=== PATIENT | male | born 1975 | race Caucasian/White ===

== ENCOUNTER 2020-12-13 15:22 | Emergency (ER) | payer BC, OTHER ==
[~2020-12-13] VITALS: Ht 172 cm; Wt 108.0 kg
[2020-12-13] MEDS ORDERED: TADA5TAB13 (15:34)
[2020-12-13] MEDS ORDERED: SERT-413 (15:34)
[2020-12-13] MEDS ORDERED: PRAV20TA3 (15:34)
--- NOTE | 2020-12-13 15:58 | ED Upper Extremity ---
General Chief Complaint: Upper Extremity Stated Complaint: FALL THROUGH CEILING/L SHOULDER INJ Nursing Triage Note: PT PRESENTS TO ED VIA POV FROM HOME WITH COMPLAINTS OF L SHOULDER PAIN AFTER FALLING PARTIALLY THROUGH DRYWALL WHEN IN THE ATTIC APROX 30 MIN DIRECTOR OF PERSONNEL. Nursing Sepsis Screen: No Definite Risk Source: patient Exam Limitations: no limitations (ELIZABETH RIBERA MED STUDENT) History of Present Illness Date Seen by Provider: Dec 13, 2020 Time Seen by Provider: 16:00 Initial Comments Pt is a 45yo male with PMH of HLD and depression who presents to the ED following a fall. He states he was working in his attic when he slipped off a rafter and his foot went through the ceiling about 30 mins before arrival. He states he landed with his left elbow striking the beam. He reports pain in his anterior shoulder at rest and pain in the posterior shoulder with movement. Denies any pain in the elbow or forearm. Reports numbness in his hand just after the fall but it has subsided. Location Injury Occurred: L arm Onset: just prior to arrival Pain/Injury Location: left shoulder Method of Injury: fell Modifying Factors: Improves With Movement (ELIZABETH RIBERA MED STUDENT) Allergies and Home Medications Allergies Coded Allergies: No Known Drug Allergies (Unverified , 12/13/20) Home Medications Hydrocodone/Acetaminophen 1 Each Tablet, 1 TAB PO Q4H PRN for PAIN-MODERATE (5- 7) Prescribed by: CARA WARD on 12/13/20 [id number] Patient Home Medication List Home Medication List Reviewed: Yes (CARA WILSON MD) Review of Systems Constitutional: No chills, No fever EENTM: no symptoms reported Respiratory: No cough, No short of breath Cardiovascular: No chest pain, No edema Gastrointestinal: No abdominal pain, No nausea, No vomiting Genitourinary: no symptoms reported Musculoskeletal: joint pain (L shoulder) Skin: No lesions Psychiatric/Neurological: Denies Numbness, Denies Tingling (ELIZABETH RIBERA MED STUDENT) Past Txefkay-Ojjqhz-Rpvjbu Hx Patient Social History Alcohol Use: Rarely Uses Smoking Status: Former Smoker Former Smoker, Quit: Nov 14, 2013 Recent Infectious Disease Expo: No Recent Hopitalizations: No (ELIZABETH RIBERA MED STUDENT) Seasonal Allergies Seasonal Allergies: No (ELIZABETH RIBERA MED STUDENT) Past Medical History Surgeries: Yes Gallbladder, Orthopedic Respiratory: No Cardiac: Yes High Cholesterol Neurological: No Genitourinary: No Gastrointestinal: No Musculoskeletal: No Endocrine: No HEENT: No Cancer: No Psychosocial: Yes Depression Integumentary: No Blood Disorders: No Adverse Reaction/Blood Tranf: No (ELIZABETH RIBERA MED STUDENT) Physical Exam Vital Signs Vital Signs - First Documented 12/13/20 15:35 Temp 36.7 Pulse 90 Resp 18 B/P (MAP) 148/100 (116) Pulse Ox 96 (CARA WILSON MD) Vital Signs Capillary Refill : Less Than 3 Seconds (ELIZABETH RIBERA MED STUDENT) Height, Weight, BMI Height: '" Weight: lbs. oz. kg; 36.00 BMI Method: General Appearance: WD/WN, no apparent distress HEENT: PERRL/EOMI Neck: non-tender, full range of motion Cardiovascular: regular rate, rhythm, no edema, no murmur Respiratory: chest non-tender, lungs clear, no respiratory distress, no accessory muscle use Gastrointestinal: normal bowel sounds, non tender, soft Back: no vertebral tenderness Shoulder: bone tenderness (anterior shoulder with palpation); No deformity, No ecchymosis; limited ROM (due to pain), soft tissue tenderness Elbow/Forearm: normal inspection, non-tender, no evidence of injury, limited ROM (limited flexion and extension due to pain in the shoulder) Wrist: Yes normal inspection, Yes non-tender, Yes no evidence of injury, Yes normal ROM Hand: normal inspection, non-tender, no evidence of injury, normal ROM Neurologic/Psychiatric: alert, normal mood/affect, oriented x 3 Skin: normal color, warm/dry (ELIZABETH RIBERA,MED STUDENT) Progress/Results/Core Measures Results/Orders My Orders Orders - CARA WILSON MD Shoulder, Left, 3 Views (12/13/20 16:30) (CARA WILSON MD) Vital Signs/I&O 12/13/20 12/13/20 15:35 18:11 Temp 36.7 36.7 Pulse 90 85 Resp 18 18 B/P (MAP) 148/100 (116) 142/92 (116) Pulse Ox 96 99 (CARA WILSON MD) Blood Pressure Mean: 116 Progress Progress Note : Progress Note Avulsion fracture of the greater tuberosity of the humeral head was noted on x- ray. Patient was placed in a shoulder immobilizer and instructed to follow-up with an orthopedic provider. See discharge instructions. (CARA WILSON MD) Diagnostic Imaging Diagonstic Imaging: Xray Plain Films/CT/US/NM/MRI: other (Left shoulder) Comments Initial reading of the left shoulder x-ray was negative. However, after further discussion with the radiologist, it was determined that there is likely a nondisplaced avulsion fracture of the greater tuberosity on the lateral aspect of the humeral head. (CARA WILSON MD) Departure Impression Primary Impression: Humerus head fracture Qualified Codes: S42.292A - Other displaced fracture of upper end of left humerus, initial encounter for closed fracture Disposition: HOME, SELF-CARE Condition: Improved Departure-Patient Inst. Decision time for Depature: 18:03 (CARA WILSON MD) Referrals: ANOOP TEJADA MD (PCP/Family) Primary Care Physician Patient Instructions: Shoulder Fracture Add. Discharge Instructions: You have a suspected avulsion fracture of the greater tuberosity of your left shoulder. Keep your shoulder in an immobilizer or a sling as much as possible until you follow-up with an orthopedic surgeon. You may use Tylenol (acetaminophen) for minor pain. Use the hydrocodone for more severe pain. Icing in 20-minute intervals may also be helpful. Follow-up with an orthopedic surgeon of your choice as soon as possible. Please call tomorrow to arrange a follow-up time. Call with questions or concerns. Return to the ER if you have worsening symptoms. All discharge instructions reviewed with patient and/or family. Voiced understanding. Scripts Hydrocodone/Acetaminophen (Hydrocodone-Acetamin 5-325 mg) 1 Each Tablet 1 TAB PO Q4H PRN for PAIN-MODERATE (5-7), #20 TAB Prov: CARA WILSON MD 12/13/20 Medical Student Attestation and Attending Note: I have personally interviewed and examined this patient along with Elizabeth Ribera, MS 4. I have reviewed student documentation including history, physical, and assessments. I agree with the documentation except where otherwise noted. Exam: General: Alert, oriented, no acute distress, well developed HEENT: Normocephalic and atraumatic Heart: Regular rate and rhythm without murmur Lungs: Clear to auscultation bilaterally with normal effort Extremities: Left upper extremity normal to inspection. Radial pulse normal. [employer] Courtesy Clerk strength normal. Sensation normal. No tenderness or pain in the elbow. Tenderness to the anterior portion of the shoulder on palpation. Clavicle non tender. Decreased active range of motion. Passive range of motion elicits minor pain. Neuropsych: Alert, oriented, no focal deficits Skin: Warm and dry without rashes (CARA WILSON MD) Copy Copies To 1: ANOOP TEJADA MD, HEATHER,MED STUDENT Dec 13, 2020 15:58 CARA WILSON MD Dec 13, 2020 18:07
--- NOTE | 2020-12-13 16:52 | Diagnostic Imaging Report ---
INDICATION: Left shoulder injury, fell through roof. Three views of the left shoulder show no fracture, dislocation or other acute abnormalities. IMPRESSION: Negative left shoulder. Dictated by: Dictated on workstation # [id number]
[2020-12-13] MEDS ORDERED: ACHD5005 PO (18:06)
[2020-12-13 18:11] VITALS: BP 142/92
== END 2020-12-13 18:11 | disposition home or self-care (01) ==
LOC: ER 15:25
DX: S42.392A Other fracture of shaft of left humerus, initial encounter for closed fracture (principal); I10 Essential (primary) hypertension; Z87.891 Personal history of nicotine dependence; W01.0XXA Fall on same level from slipping, tripping and stumbling without subsequent striking against object, initial encounter
CPT/HCPCS: 73030; 99283; L3650

== ENCOUNTER 2021-04-11 05:37 | Outpatient (CLI) | payer BC ==
[~2021-04-11] VITALS: Ht 175.3 cm; Wt 111.4 kg
[~2021-04-11 05:37] MED LIST: ACHD5005 PO; PRAV20TA3 PO; SERT-413 PO; TADA5TAB13 PO
[2021-04-11] MEDS ORDERED: CLOM25CA2 PO (16:08)
== END 2021-04-11 17:19 | disposition home or self-care (01) ==
LOC: PREOP 05:37
PROVIDERS: ATTEND Surgery
DX: Z01.818 Encounter for other preprocedural examination (principal)

== ENCOUNTER 2021-04-18 08:55 | Day surgery (SDC) | payer BC ==
[2021-04-18] VITALS (10 sets, daily range): BP systolic 121–152; BP diastolic 84–95
[~2021-04-18] VITALS: Ht 175 cm; Wt 111.4 kg
[~2021-04-18 08:55] MED LIST changes: +CLOM25CA2 PO
[2021-04-18] MEDS ORDERED: ceFAZolin 2 GM IV Premixed 50 ML IV ONE (09:00)
--- OUTSIDE RECORDS SUMMARY | 2021-04-18 09:22 | XMS REPORT | Clinical Summary ---
Author Author Organization Address Unknown Phone Unavailable Care Team Providers Care Administrative Services Officer Name Role Phone Alisia Ahumada MD PCP Allergies No Known Active Allergies Medications End Date Status Medication Sig Dispensed Refills Start Date Active pravastatin (PRAVACHOL) Take 20 mg by 0 20 MG tablet mouth daily. 0 Active sertraline (ZOLOFT) 50 mg Take 50 mg by 0 01/30 tablet mouth daily. 0 Active tadalafiL (CIALIS) 5 MG 1 tab daily 30 tablet 11 tabletIndications: 1 Hypogonadism male Active clomiPHENE (CLOMID) 50 mg 1/2 TAB DAILY 45 tablet 3 tabletIndications: 1 Hypogonadism male Active Problems Problem Noted Date Class 2 obesity due to excess calories in adult 08/31 Hypogonadism male 03/28/2020 Encounters Care Team Description Date Type Specialty Charisma Grayson MD Hypogonadism male (Primary Dx); Class 2 obesity due to excess calories without serious comorbidity with body mass index (BMI) of 36.0 to 36.9 in adult 03/07/2021 Office Visit Endocrinology from Last 3 Months Family History Medical History Relation Name Comments No Known Problems Father No Known Problems Mother Relation Name Status Comments Father Alive Mother Alive Social History Date Tobacco Use Types Packs/Day Years Used Never Smoker Smokeless Tobacco: Never Used Comments Alcohol Use Standard Drinks/Week Never 0 (1 standard drink = 0.6 o z pure alcohol) Alcohol Habits Answer Date Recorded How often do you have a drink containing alcohol? Never 03/29/2020 How many drinks containing alcohol do you have on No t asked a typical day when you are drinking? How often do you have six or more drinks on one Not asked occasion? Sex Assigned at Date Recorded Not on file Last Filed Vital Signs Reading Time Taken Comments Vital Sign 133/81 03/07/2021 1:18 PM CDT Blood Pressure 90 03/07/2021 1:18 PM CDT Pulse 36.2 C (97.2 F) 03/07/2021 1:18 PM CDT Temperature 18 03/07/2021 1:18 PM CDT Respiratory Rate 95% 03/07/2021 1:18 PM CDT Oxygen Saturation - - Inhaled Oxygen Concentration 109.6 kg (241 lb 9.6 oz) 03/07/2021 1:18 PM CDT Weight 175.3 cm (5' 9") 03/07/2021 1:18 PM CDT Height 35.68 03/07/2021 1:18 PM CDT Body Mass Index Plan of Treatment Care Team Description Date Type Specialty Charisma Grayson MD [address] [address] [phone] 09/12/2021 Video Visit Endocrinology Health Maintenance Due Date Last Done Comments Td/Tdap# 1975 Influenza Vaccine (#1) 2021 06/22/2019 COVID-19 Vaccine Completed 12/21/2020, 11/22/2020 Pneumococcal Vaccine: Aged Out No longer eligib le based on patient's age to Pediatrics (0 to 5 Years) complete this topic and At-Risk Patients (6 to 64 Years) Procedures Comments Procedure Name Priority Date/Time Associated Diag nosis HEMOGLOBIN A1C Routine 03/07/2021 Class 2 obesity due to 1:54 PM CDT excess calories without serious comorbidity with body mass index (BMI) of 36.0 to 36.9 in adult TESTOSTERONE Routine 03/07/2021 Hypogonadism ma le 1:54 PM CDT from Last 3 Months Results * Testosterone (03/07/2021 1:54 PM CDT) Testosterone 542 240 - 813 ng/dL [facility] Lab Specimen Blood Performing Organization Address City/State/ZIP Code P julia Number [address] [address] LABORATORIES [facility] [address] [place] [address] * Hemoglobin A1C (03/07/2021 1:54 PM CDT) Hemoglobin A1C 5.8 (H) 4.0 - 5.6 % [facility] Comment: Hospital Lab Non-diabetic 4.0 - 5.6 % Prediabetes 5.7 - 6.4 % Diabetes >= 6.5 % Specimen Blood Performing Organization Address City/State/ZIP Code P julia Number [place] [address] [place] [address] [address] Lab from Last 3 Months Insurance Type Payer Benefit Subscriber ID Effective Phone Address Plan / Dates Group [facility] [id number] EXCHANGE resent HMO MAX MCGRAW Advance Directives For more information, please contact: [phone] Patient Engagement Quality Consultant Explanation Type Date Recorded Health Care Directive
--- OUTSIDE RECORDS SUMMARY | 2021-04-18 09:22 | XMS REPORT | Encounter Summary ---
Author Author [facility] Organization [facility] Address Unknown Phone Unavailable Care Team Providers Care Alligator Hunter Name Role Phone Alisia Ahumada MD PCP Reason for Visit * Reason Comments Hypogonadism Encounter Details Care Team Description Date Type Department Remberto Grayson MD [address] [place] [address] Hypogonadism male (Primary Dx); Class 2 obesity due to excess calories without serious comorbidity with body mass index (BMI) of 36.0 to 36.9 in adult 03/07/2021 Office Visit [facility] [address] [place] [address] Social History Date Tobacco Use Types Packs/Day [...] Assigned at Date Recorded Not on file documented as of this encounter Last Filed Vital Signs Reading Time Taken [...] 03/07/2021 1:18 PM CDT Body Mass Index documented in this encounter Progress Notes * Remberto Grayson MD - 03/07/2021 1:40 PM CDT ENDOCRINOLOGY FOLLOW/UP 03/07/2021 Patient: Everton Lei Age: 45 y.o. : 1975 REASON FOR FOLLOW/UP: Low testosterone PRIMARY CARE PROVIDER: Alisia Ahumada MD INTERVAL HISTORY : 45 y.o. male with hypogonadism . Patient takes clomiphene 50 mg, half a tablet 4 days a week. He has improved energy level, improved libido. He still has some erectile dysfu nction, uses tadalafil with good results on as-needed basis. No brain surgery, trauma, concussions. No testicular trauma, infections. He lee s history of vasectomy. He has 7 adopted children. Patient had vasectomy around 2012. He has depression, currently treated with Zoloft, under control. He has sleep apnea, has CPAP, but has not been able to use it yet, can cannot to lerate the mask. He just ordered a different mask. Patient lost 8 pounds since last visit in August 2020. He started exercising, but then fell and had shoulder fracture and ankle sprain. Just started exercisi ng again about a week ago. He tried phentermine 1 tablet daily but was not able to lose weight on it, so he discontinued. REVIEW OF SYSTEMS: Complete review of systems was done. Positives as per HPI. Patient denies heada vishal, chest pain, shortness of breath, nausea, vomiting, abdominal pain, dizzines s The remainder of review of systems negative. PHYSICAL EXAM: VITAL SIGNS: BP 133/81 | Pulse 90 | Temp 36.2 C (97.2 F) | Resp 18 | Ht 1.753 m (5' 9") | Wt 109.6 kg (241 lb 9.6 oz) | SpO2 95% | BMI 35.68 kg/m GENERAL APPEARANCE: 45 y.o. male in no acute distress. HEENT: Normocephalic, atraumatic. NECK: Thyroid gland normal size, non-tender, moves freely with swallowing. No p alpable nodules. No obvious cervical lymphadenopathy. CV: Regular rate and rhythm, no murmur. Pulses palpable. EXTREMITIES: No edema NEURO: No tremor. Gait and balance appear normal. Affect normal. SKIN: No rashes. LAB RESULTS: Component Value Date/Time HGBA1C 5.5 03/29/2020 1153 No results found for: CHOL, TRIG, HDL, LDLCHOL, CHOLHDL, NONHDL, MICABLRND, [facility] R, VITD25 Outside labs: Testosterone 140 Hemoglobin 15.2, hematocrit 44.3, platelets 229,, WBC 5.3 Sodium 141, potassium 3.7, calcium 9.4, creatinine 0.94 Liver function test normal MRI [facility] Mar 2020 Normal-appearing pituitary gland without concerning masses or abnormal enhanceme nt A few scattered white matter foci are seen in the deep cerebral white matter was marked in the left frontal lobe which are nonspecific. This could represent some subtle white matter ischemic change versus nonspecific demyelination. There is mild to moderate maxillary and ethmoid sinus disease without air-fluid level seen. ASSESSMENT AND PLAN: 1. Hypogonadism The patient has symptoms consistent with hypogonadism. Possible contributing factors: obesity, sleep apnea, chronic depression. Imp rovements in these conditions, as much as possible, can go a long way toward imp roving hypogonadism. W/up for secondary/reversible causes of low testosterone in February 2020: Ferrit in 108, iron saturation 32, no evidence of iron overload. Prolactin 15, normal. IGF-I 128, normal. MRI pituitary normal in March 2020. Continue clomiphene 50 mg, half a tablet 4 days a week Most recent testosterone 652 in August 2020. Check today At some point, when patient loses weight, is able to control sleep apnea with CPAP, plan to give patient trial off of clomiphene. Follow-up in 6 months 2. Erectile dysfunction Tadalafil 5 mg, 2 tablets as needed. 3. Obesity (BMI Body mass index is 35.68 kg/m.) Continue lifestyle modifications to promote weight loss: Low fat diet, decrea sing portion size, regular aerobic exercise. Hemoglobin A1c 5.5 in February 2020. No prediabetes or diabetes. Check today. Addendum 03/08/21 Testosterone 542, normal. Continue clomiphene 50 mg, half a tablet 4 days a week. Follow-up in 6 months as planned Hemoglobin A1c 5.8, increased, it is in the prediabetes range. Continue lifestyle modifications to decrease the risk of progression to diabetes : Limited carbohydrate diet, regular exercise, weight control. Remberto Grayson MD PATIENT'S HISTORY TAKEN INTO CONSIDERATION IN DECISION MAKING MEDICAL HISTORY: Active Ambulatory Problems Diagnosis Date Noted Hypogonadism male 03/28/2020 Class 2 obesity due to excess calories in adult 09/12/2020 Resolved Ambulatory Problems Diagnosis Date Noted No Resolved Ambulatory Problems Past Medical History: Diagnosis Date Hyperlipidemia Testosterone deficiency SURGICAL HISTORY: Past Surgical History: Procedure Laterality Date GALLBLADDER SURGERY TOE AMPUTATION ALLERGIES: No Known Allergies MED LIST: Current Outpatient Medications Medication Sig Dispense Refill clomiPHENE (CLOMID) 50 mg tablet 1/2 TAB DAILY 45 tablet 3 pravastatin (PRAVACHOL) 20 MG tablet Take 20 mg by mouth daily. sertraline (ZOLOFT) 50 mg tablet Take 50 mg by mouth daily. tadalafiL (CIALIS) 5 MG tablet 1 tab daily 30 tablet 11 No current facility-administered medications for this visit. FAMILY HISTORY: Family History Problem Relation Age of Onset No Known Problems Mother No Known Problems Father SOCIAL HISTORY: Social History Socioeconomic History Marital status: Spouse name: Not on file Number of children: Not on file Years of education: Not on file Highest education level: Not on file Occupational History Not on file Tobacco Use Smoking status: Never Smoker Smokeless tobacco: Never Used Substance and Sexual Activity Alcohol use: Never Drug use: Not on file Sexual activity: Not on file Other Topics Concern Not on file Social History Narrative Not on file Social Determinants of Health Financial Resource Strain: Difficulty of Paying Living Expenses: Food Insecurity: Worried About Running Out of Food in the Last Year: Ran Out of Food in the Last Year: Transportation Needs: Lack of Transportation (Medical): Lack of Transportation (Non-Medical): Physical Activity: Days of Exercise per Week: Minutes of Exercise per Session: Stress: Feeling of Stress : Social Connections: Frequency of Communication with Friends and Family: Frequency of Social Gatherings with Friends and Family: Attends Restoration Services: Active Member of Clubs or Organizations: Attends Club or Organization Meetings: Marital Status: Intimate Partner Violence: Fear of Current or Ex-Partner: Emotionally Abused: Physically Abused: Sexually Abused: Remberto Grayson MD 03/07/2021 1:40 PM documented in this encounter Miscellaneous Notes * Addendum Note - Remberto Grayson MD - 03/07/2021 1:40 PM CDT Addended by: REMBERTO GRAYSON on: 03/07/2021 02:20 PM Modules accepted: Orders documented in this encounter Plan of Treatment Care Team Description Date Type Specialty Remberto Grayson MD [address] [place] [address] [phone] 09/12/2021 Video Visit Endocrinology documented as of this encounter Procedures Comments Procedure Name Priority Date/Time Associated Diag nosis TESTOSTERONE Routine 03/07/2021 Hypogonadism ma le 1:54 PM CDT HEMOGLOBIN A1C Routine 03/07/2021 Class 2 obesity due to 1:54 PM CDT excess calories without serious comorbidity with body mass index (BMI) of 36.0 to 36.9 in adult documented in this encounter Results * Hemoglobin A1C (03/07/2021 1:54 PM CDT) Hemoglobin A1C 5.8 (H) 4.0 - 5.6 % [facility] Comment: Hospital Lab Non-diabetic 4.0 - 5.6 % Prediabetes 5.7 - 6.4 % Diabetes >= 6.5 % Specimen Blood Performing Organization Address City/State/ZIP Code P julia Number [address] [address] Lab * Testosterone (03/07/2021 1:54 PM CDT) Testosterone 542 240 - 813 ng/dL [facility] Lab Specimen Blood Performing Organization Address City/[facility] Code P julia Number [facility] [address] [place] [address] LABORATORIES [facility] [address] [place] [id number] documented in this encounter Visit Diagnoses Diagnosis Hypogonadism male - Primary Other testicular hypofunction Class 2 obesity due to excess calories without serious comorbidity with body mass index (BMI) of 36.0 to 36.9 in adult documented in this encounter
[2021-04-18 09:30] LABS: BASOPHILS # (AUTO) 0.1 10^3/uL (0.0-0.1); BASOPHILS % (AUTO) 1 % (0-10); EOSINOPHILS # (AUTO) 0.2 10^3/uL (0.0-0.3); EOSINOPHILS % (AUTO) 2 % (0-10); HEMATOCRIT 49 % (40-54); HEMOGLOBIN 16.2 g/dL (13.3-17.7); LYMPHOCYTES # (AUTO) 2.2 10^3/uL (1.0-4.0); LYMPHOCYTES % (AUTO) 35 % (12-44); MEAN CORPUSCULAR HEMOGLOBIN 30 pg (25-34); MEAN CORPUSCULAR HGB CONC 33 g/dL (32-36); MEAN CORPUSCULAR VOLUME 91 fL (80-99); MEAN PLATELET VOLUME 9.5 fL (9.0-12.2); MONOCYTES # (AUTO) 0.6 10^3/uL (0.0-1.0); MONOCYTES % (AUTO) 9 % (0-12); NEUTROPHILS # (AUTO) 3.4 10^3/uL (1.8-7.8); NEUTROPHILS % (AUTO) 53 % (42-75); PLATELET COUNT 225 10^3/uL (130-400); WHITE BLOOD COUNT 6.3 10^3/uL (4.3-11.0)
--- NOTE | 2021-04-18 09:55 | Progress Note-Pre Operative ---
Pre-Operative Progress Note H&P Reviewed The H&P was reviewed, patient examined and no changes noted. Date Seen by Provider: Apr 18, 2021 Time Seen by Provider: 09:50 Date H&P Reviewed: Apr 18, 2021 Time H&P Reviewed: 09:45 Pre-Operative Diagnosis: Bilateral inguinal hernias and umbilical hernia LISA CABRERA APRN Apr 18, 2021 09:55
[2021-04-18] MEDS: LACTATED RINGERS 1,000 ML IV PRN ×2 (09:56→11:30)
[2021-04-18] MEDS ORDERED: HYDR-3817 PO (09:57)
--- NOTE | 2021-04-18 09:58 | Discharge Inst-Surgical ---
D/C Lap Instructions-KIDO Reconcile Patient Problems Problems Reviewed?: Yes New, Converted, or Re-Newed RX: RX on Chart Follow Up Appt in 2 weeks Activity as tolerated No driving for 24 hours No driving while on pain medications Incentive Spirometry use every 2 hours while awake Regular Diet Symptoms to Report: Fever over 101 degree F, Nausea/Vomiting Infection Signs and Symptoms to report: Increased redness, Foul odor of wound, Increased drainage Bathing instructions: May shower Operative Area Clean/Dry; Keep incision clean/dry If any problems/questions: Contact your physician or go to Emergency Room LISA CABRERA APRN Apr 18, 2021 09:57
[2021-04-18] MEDS ORDERED: morphine INJ 10 MG/ML 1ML (SYR OR VIAL) IVP PRN (10:00)
[2021-04-18] MEDS ORDERED: HYDROcodone/APAP 5 MG/325 MG (LORTAB) TAB PO ONE (10:00)
[2021-04-18] MEDS ORDERED: ONDANSETRON 4 MG/2 ML (SDV) Z0FRAN IVP PRN ×2 (10:00→13:00)
[2021-04-18] MEDS ORDERED: ACETAMINOPHEN 325 MG TABLET PO PRN (10:00)
[2021-04-18] MEDS ORDERED: GLYCOPYRROLATE 0.2 MG/ML (ROBINUL) 2 ML VIAL ONE (10:52)
[2021-04-18] MEDS ORDERED: LIDOCAINE PF 2% 5 ML (XYLOCAINE) VIAL ONE (10:52)
[2021-04-18] MEDS ORDERED: fentaNYL INJ 100 MCG/2 ML AMP ONE (10:52)
[2021-04-18] MEDS ORDERED: proPOfol 200 MG/20 ML (DIPRIVAN) VIAL IV ONE (10:52)
[2021-04-18] MEDS ORDERED: NEOSTIGMINE 3 MG/3 ML VIAL ONE (10:52)
[2021-04-18] MEDS ORDERED: ROCURONIUM 10 MG/ML 5 ML SYRINGE IV ONE (10:52)
[2021-04-18] MEDS ORDERED: ONDANSETRON 4 MG/2 ML (SDV) Z0FRAN ONE (10:52)
[2021-04-18] MEDS ORDERED: MIDAZOLAM 2 MG/2 ML (VERSED) VIAL ONE (10:53)
[2021-04-18] MEDS ORDERED: LIDOCAINE/EPI 1%-1:200,000 (XYLOCAINE) 30 ML VIAL ONE (10:59)
--- NOTE | 2021-04-18 12:28 | Progress Note-Post Operative ---
Post-Operative Progess Note Surgeon (s)/Accounts Specialist (s) Surgeon CLAUDE SKAGGS MD Accounts Specialist: david godoy HEMOTHERAPIST Pre-Operative Diagnosis Bilateral inguinal hernias and umbilical hernia Post-Operative Diagnosis bilateral direct ing hernia, umbilical hernia Procedure & Operative Findings Date of Procedure 04/18/21 Procedure Performed/Findings laparoscopic bilateral inguinal hernia repair with mesh. open umbilical hernia repair with mesh. Anesthesia Type get Estimated Blood Loss Estimated blood loss (mL): minimal Specimens/Packing Specimens Removed hernia sac CLAUDE SKAGGS MD Apr 18, 2021 12:28
[2021-04-18] MEDS ORDERED: SEVOFLURANE (ULTANE) 15 ML INHAL SOLN ONE ×2 (12:51→12:52)
[2021-04-18] MEDS ORDERED: HYDROmorphone 2 MG/ML VIAL (DILAUDID) IV ONE (13:00)
[2021-04-18] MEDS ORDERED: morphine INJ 10 MG/ML 1ML (SYR OR VIAL) IVP ONE (13:00)
--- NOTE | 2021-04-18 15:13 | Anesthesia-General Post-Op ---
General Patient Condition Mental Status/LOC: Same as Preop Cardiovascular: Satisfactory Nausea/Vomiting: Absent Respiratory: Satisfactory Pain: Controlled Complications: Absent Post Op Complications Complications None Follow Up Care/Instructions Patient Instructions None needed. Anesthesia/Patient Condition Patient Condition Patient was seen on his way from PACU to SDC and he was doing well, no complaints, stable vital signs, no apparent adverse anesthesia problems. SHAHANA TOURE DO Apr 18, 2021 15:13
--- NOTE | 2021-04-18 18:05 | OPERATIVE REPORT ---
DATE OF SERVICE: 04/18/2021 ATTENDING PRIMARY CARE PHYSICIAN: Dr. Alisia Ahumada. PREOPERATIVE DIAGNOSES: Symptomatic reducible bilateral inguinal and symptomatic reducible umbilical hernia. POSTOPERATIVE DIAGNOSIS: Symptomatic reducible bilateral inguinal and symptomatic reducible umbilical hernia. PROCEDURE: Laparoscopic bilateral inguinal hernia repair with mesh, open umbilical hernia repair with mesh. SURGEON: Claude Skaggs MD. REVENUE CYCLE CONSULTANT: Kirby Diaz APRN. ANESTHESIA: General endotracheal. ESTIMATED BLOOD LOSS: Minimal. FINDINGS: Bilateral direct inguinal hernia. DISPOSITION: The patient tolerated the procedure well. INDICATIONS: The patient is a 45-year-old male who was referred over to us for pain involving the umbilical region. He states that he has had this for years; however, this has become larger over time and become painful. He also reports that he was noted to have a right inguinal hernia; however, did not notice any bulge. He states that this was identified on a work-related physical. Upon examination, he was found to have bilateral inguinal hernias, which were reducible; however, slightly tender to palpation. DESCRIPTION OF PROCEDURE: The patient was brought to the operating room, laid supine on the table. After adequate IV pain and sedative medications and general endotracheal intubation, the abdomen was prepped and draped in standard surgical fashion. A 0.5% Marcaine with epinephrine was used to anesthetize the left lateral abdomen and skin incision was made using 15 blade. An 0 silk suture was applied to the medial aspect of the incision for retraction and a Veress needle inserted with a low opening pressure of 0 mmHg. The abdomen was then insufflated to 15 mmHg pressure. Veress needle removed and a 5 mm XL trocar placed followed by a 5 mm 45-degree angle laparoscope visualizing the peritoneal cavity. A 4-quadrant abdominal exploration was performed. There was bilateral direct inguinal hernias with nothing within the hernia sac. There was also an umbilical hernia with omentum within the hernia sac. Under direct visualization, we then proceed to place a 10 mm supraumbilical port through the hernia sac. Under direct visualization, after the skin and hernia sac were anesthetized using 0.5% Marcaine with epinephrine. In a similar manner, a right lateral 5 mm port was placed. The patient was then placed in a Trendelenburg position, we first proceeded with repair of the right inguinal hernia by opening the peritoneal lining laterally towards the conjoined tendon and inguinal ligament laterally and medially until we reached the Ti's ligament. We then proceeded with inferior dissection encompassing the hernia sac. The cord and its surrounding contents were identified and spared throughout the process. Good hemostasis was observed. A medium sized 3DMax polypropylene mesh was then placed through the 15 mm port site and tacked to Ti's ligament medially with an AbsorbaTack into an inguinal ligament laterally. Peritoneal lining was then placed over the mesh and a few tacks placed to keep this in place with visualization of good hemostasis. We then turned our attention to repair the left inguinal hernia in a similar manner. The peritoneal lining was opened with the Sonicision laterally towards the conjoined tendon and inguinal ligament and Ti's ligament medially. We then proceeded with inferior dissection encompassing the hernia sac. The cord and its surrounding contents identified and spared throughout the process. Good hemostasis was observed and the same mesh was then placed into the defect and tacked to Ti's ligament medially and to the inguinal ligament laterally. Peritoneal lining was then placed over the mesh and a few absorbable tacks placed to keep this in place. The abdomen was then desufflated. The umbilical hernia sac was then dissected out using electrocautery. A 6.4 coated polypropylene mesh was then placed into the hernia sac and then sutured transfascially in a concentric manner using 0 Prolene interrupted sutures. The remaining ports removed and all skin incisions were closed using 4-0 Monocryl running subcuticular sutures. Wounds were then cleaned and covered with Dermabond. The umbilicus was then filled with tonsil sponges followed by 4 x 4 gauze followed by a large Op-Site and an abdominal binder. The patient tolerated the procedure well. We will start IV normal pain medication as well as a clear liquid diet. Once he is tolerating clears as good pain control with oral pain medications, ambulating well, we will discharge him home. He will be instructed to do no heavy lifting or exertion for the next two weeks and to wear the abdominal binder and scrotal support for that timeframe as well. Job ID: [id number] DocumentID: [id number] Dictated Date: 04/18/2021 12:39:46 Cloth Hand Date: 04/18/2021 18:04:44 Dictated By: CLAUDE SKAGGS MD
== END 2021-04-18 14:40 | disposition home or self-care (01) ==
LOC: SDC 08:55
PROVIDERS: ATTEND Surgery
DX: K40.20 Bilateral inguinal hernia, without obstruction or gangrene, not specified as recurrent (principal); K42.9 Umbilical hernia without obstruction or gangrene; G47.33 Obstructive sleep apnea (adult) (pediatric); F32.9 Major depressive disorder, single episode, unspecified; E66.01 Morbid (severe) obesity due to excess calories; Z68.36 Body mass index [BMI] 36.0-36.9, adult; Z79.899 Other long term (current) drug therapy
CPT/HCPCS: 49585; 49650; 85025; 87081; C1781 ×3; 36415

== ENCOUNTER 2021-07-30 12:57 | Emergency (ER) | payer BC ==
[~2021-07-30] VITALS: Ht 175 cm; Wt 111.4 kg
[~2021-07-30 12:57] MED LIST changes: +HYDR-3817 PO
--- OUTSIDE RECORDS SUMMARY | 2021-07-30 13:03 | XMS REPORT | Clinical Summary ---
Author Author [facility] Organization [facility] Address Unknown Phone Unavailable Care Team Providers Care Closing Specialist Name Role Phone Alisia Ahumada MD PCP Allergies No known active allergies Medications End Date Status Medication Sig Dispensed [...] calories in adult 08/31 Hypogonadism male 03/28/2020 Family History Medical History Relation Name Comments [...] more drinks on one Not asked occasion? Comment: Not asked Sex Assigned at Date Recorded Not on [...] Type Specialty Charisma Grayson MD [address] [place] [address] 09/12/2021 Video Visit Endocrinology Health Maintenance Due Date Last Done Comments Td/Tdap# 1975 Influenza Vaccine (#1) 2021 06/22/2019 COVID-19 Vaccine Completed 12/21/2020, 11/22/2020 Pneumococcal Vaccine: Aged Out No longer eligib le based on patient's age to Pediatrics (0 to 5 Years) complete this topic and At-Risk Patients (6 to 64 Years) Results Not on filefrom Last 3 Months Insurance Type Payer Benefit Subscriber ID Effective Phone Address Plan / Dates Group [facility] [id number] 2019-P [id number] EXCHANGE [facility] [id number] Advance Directives For more information, please contact: [phone] 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
--- NOTE | 2021-07-30 13:33 | ED Lower Extremity ---
General Chief Complaint: Lower Extremity Stated Complaint: L ANKLE PAIN Nursing Triage Note: PT TO ER BY WC WITH C/O L ANKLE PAIN FROM A 2-3FT FALL OFF A LADDER. HE STEPPED OFF THE SECOND RUNG OF THE LADDER AND TWISTED IT AND FELL Source: patient Exam Limitations: no limitations History of Present Illness Date Seen by Provider: Jul 30, 2021 Time Seen by Provider: 13:31 Initial Comments To ER with left lateral ankle pain and swelling after he stepped down about 2 to 3 feet off of a ladder. He inverted the ankle. He was weightbearing after this happened. Onset: just prior to arrival Severity: moderate Pain/Injury Location: left ankle Method of Injury: fell, twisted Modifying Factors: Worse With Movement Allergies and Home Medications Allergies Coded Allergies: No Known Drug Allergies (Unverified , 12/13/20) Patient Home Medication List Home Medication List Reviewed: Yes Clomipramine HCl (Clomipramine HCl) 25 Mg Capsule, 25 MG PO 4X/WEEK, (Reported) Entered as Reported by: NATALI CORONA on 04/11/21 1608 Hydrocodone/Acetaminophen (Hydrocodone-Acetamin 7.5-325) 1 Each Tablet, 1 EACH PO Q4H PRN for PAIN-BREAKTHROUGH Prescribed by: LISA CABRERA on 04/18/21 0957 Pravastatin Sodium (Pravastatin Sodium) 20 Mg Tablet, 20 MG PO DAILY, (Reported) Entered as Reported by: EDDA SINGLETON on 12/13/20 1534 Sertraline HCl (Sertraline HCl) 50 Mg Tablet, 50 MG PO DAILY, (Reported) Entered as Reported by: EDDA SINGLETON on 12/13/20 1534 Tadalafil (Tadalafil) 5 Mg Tablet, 5 MG PO PRN, (Reported) Entered as Reported by: EDDA SINGLETON on 12/13/20 1534 Review of Systems Constitutional: see HPI EENTM: see HPI Respiratory: no symptoms reported Cardiovascular: no symptoms reported Genitourinary: no symptoms reported Musculoskeletal: see HPI Skin: no symptoms reported Psychiatric/Neurological: No Symptoms Reported Past [id number]-[id number]-[id number] Hx Patient Social History Tobacco Use?: No Use of E-Cig and/or Vaping dev: Yes E-Cig or Vaping type used: Nicotine Use of E-Cig and/or Vaping Ion: Current Everyday User Substance use?: No Alcohol Use?: No Pt feels they are or have been: No Immunizations Up To Date Influenza Vaccine Up-to-Date: No; Not Current First/Initial COVID19 Vaccinat: OCTOBER 2020 Second COVID19 Vaccination Capo: NOVEMBER 2020 Seasonal Allergies Seasonal Allergies: No Past Medical History Surgeries: Yes (TOE AMPUTATION; PILONIDAL CYST) Gallbladder, Orthopedic Respiratory: No Sleep Apnea Currently Using CPAP: Yes Currently Using BIPAP: No Cardiac: Yes High Cholesterol Neurological: No Genitourinary: No Gastrointestinal: No Musculoskeletal: No Endocrine: No HEENT: No Cancer: No Psychosocial: Yes Depression Integumentary: No Blood Disorders: No Adverse Reaction/Blood Tranf: No Physical Exam Vital Signs Vital Signs - First Documented 07/30/21 13:07 Temp 36.3 Pulse 64 Resp 18 B/P (MAP) 152/80 (104) Pulse Ox 98 O2 Delivery Room Air Capillary Refill : Less Than 3 Seconds Height, Weight, BMI Height: '" Weight: lbs. oz. kg; 36.00 BMI Method: General Appearance: WD/WN, no apparent distress Respiratory: no respiratory distress, no accessory muscle use Hips: bilateral hip non-tender, bilateral hip normal inspection, bilateral hip normal range of motion Legs: bilateral leg non-tender, bilateral leg normal inspection, bilateral leg normal range of motion Knees: bilateral knee non-tender, bilateral knee normal inspection, bilateral knee normal range of motion Ankles: left ankle pain, left ankle soft tissue tenderness, left ankle swell ing, left ankle other (Over the lateral malleolus. The toes are warm and well- perfused with normal sensation.) Feet: bilateral foot non-tender, bilateral foot normal inspection, bilateral foot normal range of motion Neurologic/Psychiatric: alert, normal mood/affect, oriented x 3 Skin: normal color, warm/dry Progress/Results/Core Measures Results/Orders My Orders Orders - KARSTEN CROSS APRN Ankle, Left, 3 Views (07/30/21 13:28) Vital Signs/I&O 07/30/21 13:07 Temp 36.3 Pulse 64 Resp 18 B/P (MAP) 152/80 (104) Pulse Ox 98 O2 Delivery Room Air Blood Pressure Mean: 104 Departure Impression Primary Impression: Sprain and strain of ankle Disposition: 01 HOME, SELF-CARE Condition: Stable Departure-Patient Inst. Decision time for Depature: 13:54 Referrals: ANOOP TEJADA MD (PCP/Family) Primary Care Physician Patient Instructions: Ankle Sprain ED Add. Discharge Instructions: 1. Roldan wrap to the ankle to help compress this. Elevate this for 30 minutes every 3-4 hours. Do that for 3 to 4 days. Return to ER for any concerns. Tylenol and ibuprofen for pain control. Ice pack to the area will help with pain and swelling. All discharge instructions reviewed with patient and/or family. Voiced understanding. Work/School Note: Work Release Form Date Seen in the Emergency Department: Aug 02, 2021 Return to Work: Jul 30, 2021 KARSTEN CROSS APRN Jul 30, 2021 13:33
--- NOTE | 2021-07-30 13:57 | Diagnostic Imaging Report ---
INDICATION: Fell off ladder. Ankle pain. EXAMINATION: Left ankle, 07/30/2021. FINDINGS: Three views of the ankle. There is a small linear density adjacent to the medial malleolus in between the tibia and talus, perhaps a small avulsion fracture with a similar linear density more distally abutting the medial border of the talus. Correlate for point tenderness. The remaining osseous structures are intact. No dislocations. Ankle mortise and talar dome are intact IMPRESSION: 1. Two small linear densities on the first view, possibly small avulsion fracture fragments. Correlate for medial point tenderness. Dictated by: Dictated on workstation # [id number]
[2021-07-30 14:08] VITALS: BP 147/80
== END 2021-07-30 14:10 | disposition home or self-care (01) ==
LOC: EDUNIT# 12:57 → ER 12:58
DX: S93.402A Sprain of unspecified ligament of left ankle, initial encounter (principal); G47.30 Sleep apnea, unspecified; E78.00 Pure hypercholesterolemia, unspecified; F32.9 Major depressive disorder, single episode, unspecified; F17.290 Nicotine dependence, other tobacco product, uncomplicated; Z79.899 Other long term (current) drug therapy; X50.1XXA Overexertion from prolonged static or awkward postures, initial encounter
CPT/HCPCS: 73610